=== PATIENT | male | born 1970 | race Caucasian/White ===

== ENCOUNTER → 2023-09-21 11:11 | Outpatient (REF) | payer BC, SELFPAY ==
[2023-09-21 12:00] LABS: Blood Urea Nitrogen 15 mg/dl (9-20); Calcium 9.5 mg/dl (8.4-10.2); Carbon Dioxide 26 mmol/L (22-30); Chloride 101 mmol/L (98-107); Glucose 85 mg/dl (70-99); HDL Cholesterol 33 mg/dl; LDL Cholesterol, Calculated 81 mg/dl; Potassium 4.9 mmol/L (3.5-5.1); Sodium 137 mmol/L (135-145); Total Cholesterol 131 mg/dl (50-199); Triglyceride 86 mg/dl (10-149); Very Low Density Lipoprotein 17 mg/dl (0-30); eGFR > 60.00
[2023-09-21 12:53] LABS: TSH 1.01 uIU/ml (0.47-4.68)
[2023-09-21 14:07] LABS: Glycohemoglobin (HgbA1c) 5.4 % (4.0-5.6)
== END ==
LOC: REG 11:11
PROVIDERS: ATTENDING PHYSICIAN Student in an Organized Health Care Education/Training Program
DX: Z00.00 Encounter for general adult medical examination without abnormal findings (principal)
CPT/HCPCS: 36415; 80048; 80061; 83036; 84443

== ENCOUNTER → 2024-03-24 11:12 | Outpatient (REF) | payer BC, SELFPAY ==
[2024-03-24 12:58] LABS: Hematocrit 42.6 % (39.0-52.0); Hemoglobin 14.9 g/dL (13.0-18.0); Mean Corpuscular Hgb 29.6 pg (27.0-31.0); Mean Corpuscular Volume 84.5 fL (80.0-94.0); Mean Platelet Volume 9.7 fL (7.4-10.4); Platelet Count 257 10^3/uL (130-400); Red Blood Cell Count 5.04 10^6/uL (4.70-6.10); Red Cell Dist. Width 12.6 % (11.5-14.5); White Blood Cell Count 5.2 10^3/uL (4.8-10.8)
[2024-03-24 13:30] LABS: Lipase 117 U/L (23-300)
== END ==
LOC: REG 11:12
PROVIDERS: ATTENDING PHYSICIAN Student in an Organized Health Care Education/Training Program
DX: Z00.00 Encounter for general adult medical examination without abnormal findings (principal); E66.9 Obesity, unspecified; Z68.35 Body mass index [BMI] 35.0-35.9, adult; I10 Essential (primary) hypertension; Z12.11 Encounter for screening for malignant neoplasm of colon; Z12.12 Encounter for screening for malignant neoplasm of rectum; I48.0 Paroxysmal atrial fibrillation
CPT/HCPCS: 36415; 83690; 85027

== ENCOUNTER → 2024-07-25 11:36 | Outpatient (REF) | payer BC, SELFPAY ==
[2024-07-25 12:38] LABS: % Basophils 0.9 % (0-2); % Eosinophils 3.1 % (0-6); % Immature Granulocytes 0.2 % (0-0.5); % Lymphocytes 30.8 % (20.5-51.1); % Monocytes 11.4 % (1.7-9.3); % Neutrophils 53.6 % (42.2-75.2); Absolute Eosinophils 0.1 10^3/uL (0-0.7); Absolute Lymphocytes 1.4 10^3/uL (1.2-3.4); Absolute Monocytes 0.5 10^3/uL (0.1-0.6); Absolute Neutrophils 2.5 10^3/uL (1.4-6.5); Hematocrit 45.2 % (39.0-52.0); Hemoglobin 15.4 g/dL (13.0-18.0); Mean Corp Hgb Conc. 34.1 g/dL (33.0-37.0); Mean Corpuscular Hgb 29.4 pg (27.0-31.0); Mean Corpuscular Volume 86.4 fL (80.0-94.0); Mean Platelet Volume 9.3 fL (7.4-10.4); Nucleated Red Blood Cells % 0 % (-); Platelet Count 251 10^3/uL (130-400); Red Blood Cell Count 5.23 10^6/uL (4.70-6.10); Red Cell Dist. Width 12.4 % (11.5-14.5); White Blood Cell Count 4.6 10^3/uL (4.8-10.8)
[2024-07-25 13:53] LABS: ALT (SGPT) 72 U/L (0-50); AST (SGOT) 36 U/L (17-59); Albumin 4.2 g/dl (3.5-5.0); Alkaline Phosphatase 52 U/L (38-126); Blood Urea Nitrogen 21 mg/dl (9-20); Carbon Dioxide 27 mmol/L (22-30); Chloride 100 mmol/L (98-107); Glucose 79 mg/dl (70-99); Potassium 4.9 mmol/L (3.5-5.1); Sodium 135 mmol/L (135-145); Total Bilirubin 0.7 mg/dl (0.2-1.3); Total Protein 6.3 g/dl (6.3-8.2); eGFR > 60.00
[2024-07-25 14:14] LABS: PSA, Total - Screen 0.95 ng/ml (0.0-4.0)
== END ==
LOC: REG 11:36
PROVIDERS: ATTENDING PHYSICIAN Nurse Practitioner Family
DX: Z12.5 Encounter for screening for malignant neoplasm of prostate (principal); I48.0 Paroxysmal atrial fibrillation; E78.00 Pure hypercholesterolemia, unspecified; I10 Essential (primary) hypertension; E66.01 Morbid (severe) obesity due to excess calories; E66.9 Obesity, unspecified
CPT/HCPCS: 36415; 80053; 85025; G0103

== ENCOUNTER 2024-08-24 10:58 | Inpatient (IN) | payer BC, SELFPAY ==
--- NOTE | 2024-08-10 14:17 | VNURNOTE ---
[facility] liaison called patient to discuss SDS joint protocol, post op plans. No answer, left message.
--- NOTE | 2024-08-10 16:02 | VNURNOTE ---
[facility] Liaison spoke with patient and spouse regarding pre-op plans. He is scheduled for R Total Knee Arthroplasty on 08/[address] Love. Patient has had orthopedic surgery in the past (hip) and stayed overnight. Patient stated he is expecting to
stay overnight after R Total Knee 08/24. He plans on having outpt PT at [facility] Date TBD.
Patient has a rolling walker and lives with spouse. Spouse will be available to assist post-op. Patient aware to bring rolling walker with him when DC'ed.
Plan- Follow up after Pre-Op appt on 08/17. [facility] per [facility] joint protocol versus overnight stay and outpt PT.
[2024-08-17 10:39] LABS: Hemoglobin 14.8 g/dL (13.0-18.0); Mean Corp Hgb Conc. 33.6 g/dL (33.0-37.0); Mean Corpuscular Hgb 29.4 pg (27.0-31.0); Mean Corpuscular Volume 87.5 fL (80.0-94.0); Mean Platelet Volume 9.4 fL (7.4-10.4); Platelet Count 223 10^3/uL (130-400); Red Blood Cell Count 5.03 10^6/uL (4.70-6.10); Red Cell Dist. Width 12.8 % (11.5-14.5); White Blood Cell Count 4.6 10^3/uL (4.8-10.8)
[2024-08-17 12:16] LABS: ALT (SGPT) 92 U/L (0-50); AST (SGOT) 41 U/L (17-59); Albumin 4.1 g/dl (3.5-5.0); Alkaline Phosphatase 53 U/L (38-126); Blood Urea Nitrogen 20 mg/dl (9-20); Calcium 8.8 mg/dl (8.4-10.2); Carbon Dioxide 30 mmol/L (22-30); Chloride 100 mmol/L (98-107); Glucose 93 mg/dl (70-99); Potassium 4.4 mmol/L (3.5-5.1); Sodium 137 mmol/L (135-145); Total Bilirubin 0.6 mg/dl (0.2-1.3); Total Protein 6.3 g/dl (6.3-8.2); eGFR > 60.00
[2024-08-17 13:34] VITALS: BMI 36.1
--- NOTE | 2024-08-18 10:28 | VNURNOTE ---
Follow up phone call placed after pre-op appt 08/17. Spoke with patient's spouse. She stated patient is staying overnight after surgery. He has outpt PT scheduled [facility]. T.T. and phone call placed to Vickey Alfaro to confirm.
Plan- Outpt PT.
[2024-08-22 09:58] VITALS: BMI 36.1
[2024-08-24] VITALS (15 sets, daily range): BP systolic 99–148; BP diastolic 51–80; BMI 36.1
[2024-08-24] MEDS: CELEBREX 200 MG PO (12:04)
[2024-08-24] MEDS: TYLENOL 650 MG PO ×2 (12:04→22:05)
[2024-08-24] MEDS: NORMOSOL-R/PLASMALYTE-A 1000 IV ×2 (12:05→19:16)
--- NOTE | 2024-08-24 12:06 | W.DS.TRANS ---
DC Summary - Physical Education Aide
-
Discharge Instructions:
Discharge Diagnosis/Procedures R TKA 08/24/24
Diet As tolerated
Activity With Walker
Driving Restrictions No driving
Bathing Restrictions OK to Shower
Other Services PT
Instructions:
Stand-Alone Forms: SDS Total Hip and Knee D/C
Changes to Home Medications: Yes
Discharge Medications:
DC Medications w/original date entered in [employer]
metoprolol succinate 50 mg tablet,extended release 24 hr 50 mg PO DAILY Blood pressure 05/09/21
simvastatin 20 mg tablet 20 mg PO DAILY High cholesterol 05/09/21
B-complex with vitamin C 1 cap PO DAILY Supplement 08/15/21
clobetasol 0.05 % topical cream 1 applic topical DAILY PRN skin irritation 08/14/24
flaxseed oil 1,000 mg capsule 1,000 mg PO DAILY 08/14/24
glucosamine sulfate dipotassium Cl 500 mg-chondroitin 400 mg capsule (Glucosamine Sulfate 2 KCL-Chondroitin) 2 cap PO DAILY Supplement 08/14/24
lisinopril 40 mg tablet 40 mg PO DAILY 08/14/24
spironolactone 25 mg tablet 25 mg PO DAILY Fluid retention/Swelling 08/14/24
tirzepatide (weight loss) 15 mg/0.5 mL subcutaneous pen injector (Zepbound) 15 mg SC TH 08/14/24
dexamethasone 4 mg tablet 4 mg PO BID inflammation #6 tabs 08/17/24
famotidine 20 mg tablet 20 mg PO HS GI prophylaxis #30 tabs 08/17/24
gabapentin 300 mg capsule 300 mg PO HS sleep/pain #10 caps 08/17/24
mupirocin 2 % topical ointment 1 applic topical BID infection prevention #1 tube 08/17/24
oxycodone 5 mg tablet 5 mg PO Q6H PRN 1 tab moderate pain, 2 tabs severe pain #30 tabs 08/17/24
acetaminophen 325 mg tablet (Tylenol) 650 mg (2 x 325 mg) PO QID #1 tab 08/24/24
apixaban 5 mg tablet (Eliquis) 2.5 mg (1/2 x 5 mg) PO BID Blood clot prevention/tx/afib #0 tabs 08/24/24
docusate sodium 100 mg capsule (Colace) 100 mg PO BID stool softner #1 cap 08/24/24
magnesium hydroxide 400 mg/5 mL oral suspension (Milk of Magnesia) 30 ml PO HS PRN Constipation #1 mL 08/24/24
sennosides 8.6 mg tablet (Senokot) 17.2 mg (2 x 8.6 mg) PO BID laxative #2 tabs 08/24/24
Home Medication Changes
dexamethasone 4 mg tablet 4 mg PO BID inflammation #6 tabs 08/17/24
famotidine 20 mg tablet 20 mg PO HS GI prophylaxis #30 tabs 08/17/24
gabapentin 300 mg capsule 300 mg PO HS sleep/pain #10 caps 08/17/24
mupirocin 2 % topical ointment 1 applic topical BID infection prevention #1 tube 08/17/24
oxycodone 5 mg tablet 5 mg PO Q6H PRN 1 tab moderate pain, 2 tabs severe pain #30 tabs 08/17/24
acetaminophen 325 mg tablet (Tylenol) 650 mg (2 x 325 mg) PO QID #1 tab 08/24/24
apixaban 5 mg tablet (Eliquis) 2.5 mg (1/2 x 5 mg) PO BID Blood clot prevention/tx/afib #0 tabs 08/24/24
docusate sodium 100 mg capsule (Colace) 100 mg PO BID stool softner #1 cap 08/24/24
magnesium hydroxide 400 mg/5 mL oral suspension (Milk of Magnesia) 30 ml PO HS PRN Constipation #1 mL 08/24/24
sennosides 8.6 mg tablet (Senokot) 17.2 mg (2 x 8.6 mg) PO BID laxative #2 tabs 08/24/24
Pending Results: No
--- NOTE | 2024-08-24 15:58 | OR.RPT ---
Addendum entered and electronically signed by Corey Love MD 08/24/24 18:08:
22 modifier was added for BMI >35kg/m2 which required 20 additional minutes for positioning, exposure, and implanting the components.
Original Note:
Operative Report
Operative Report
Orthopaedic Surgery Operative Note
DATE OF OPERATION: 08/24/2024
PREOPERATIVE DIAGNOSES: Osteoarthritis, right knee.
POSTOPERATIVE DIAGNOSES: Osteoarthritis, right knee.
OPERATION PERFORMED:
1) Right total knee arthroplasty (CPT 97651)
2) Intraosseous administration of analgesic (CPT 41949)
SURGEON: Corey Love MD
ASSISTANTS: Lex Moser PA-C who helped with patient and limb positioning and retraction
ANESTHESIA: Spinal by anesthesia plus intraoperative infusion of morphine into the tibial metaphysis by Dr. Love
COMPLICATIONS: None.
ESTIMATED BLOOD LOSS: 20mL
DRAINS: None
TOURNIQUET TIME: 57 minutes.
IMPLANTS:
- Karl Persona CR Femur, size 12
- Karl Persona tibia base plate, size H
- Karl Persona ultracongruent articular surface, 10 mm
- DJO Lindsay bone cement
INDICATIONS: The patient presented to my office with debilitating right knee pain due to osteoarthritis. We reviewed the natural history of this problem, as well as the risks, benefits, and alternatives of various treatment options. The patient
exhausted all nonoperative treatment options and wished to proceed with knee replacement surgery. The patient understood the risks which included, but were not limited to, bleeding, infection, failure to relieve pain, more pain than preop, damage to
blood vessels and nerves, need for reoperation, mechanical failure of the implants, wound healing problems, stiffness, instability, blood clot, pulmonary embolism, myocardial infarction, pneumonia, arrhythmia, CVA, and . The patient accepted
these risks and wished to proceed. All questions were answered, and informed consent was obtained.
PROCEDURE IN DETAIL: The patient was identified in the preoperative holding area. The right knee was identified as the operative site. The patient was taken in the operating room and placed in a supine position on the operating table. Spinal
anesthesia was performed. IV antibiotics and tranexamic acid were administered. An SCD was placed on the left lower extremity. A well-padded tourniquet was placed on the proximal thigh. All bony prominences were well padded. The right lower
extremity was prepped and draped in the usual sterile fashion.
We performed a surgical time-out. An interarticular block was performed with local anesthetic with epinephrine. The limb was exsanguinated with an Esmarch bandage, then the tourniquet was inflated to 250 mmHg. I performed interosseous administration
of morphine-saline solution via a Jamshidi style intraosseous needle into the proximal medial tibial metaphysis as described by Nuno Garcia MD. This was performed to aid in pain control. A midline skin incision was made followed by a medial
parapatellar arthrotomy. A subperiosteal peel was performed on the medial tibia. I excised part of the infrapatellar fat pad to improve our visualization as well as tissue over anterior femur. The patella was everted and the knee was flexed. I
excised the remnants of the anterior and posterior cruciate ligaments as well as tibial and femoral osteophytes with rongeurs.
The knee was flexed, and the extramedullary tibial cutting guide was aligned. [place] was aligned at neutral, rotation was centered on the tibial tubercle, and coronal alignment was aligned with the mechanical axis of the tibia and center of the ankle
joint. The cut height was 10mm off the lateral tibia joint surface. The guide was secured into place. The MCL and LCL were protected. The tibia surface was cut. The cut surface was inspected after removal to ensure appropriate height and slope based
on the preoperative plan. The cut was checked with a drop oracio. It was centered nicely at the ankle.
A drill was used to open the femoral canal. The intramedullary distal femoral cutting guide was inserted into the femur. This was set at 5 degrees +1 due to flexion contracture. This was secured into place with three pins. The cut level was checked
with an dayton wing. The distal femur was cut through the cutting guide. The IM guide was reinserted to double check that the level of resection was flush and in appropriate alignment.
Hudspeth�s line and the transepicondylar axis were marked on the femur. The femoral sizing guide was applied to the anterior femur. Pins were inserted, and the 4-in-1 cutting guide was applied and secured into place. The rotation was compared to
Hudspeth�s line, the transepicondylar axis, and the neutral tibia cut and was found to be appropriate. The width was checked and found to be appropriate and lateralized on the femur. The anterior, posterior, and chamfur cuts were made. A lamina
histologic aide was used to open the flexion gap, and posterior osteophytes were removed with a curved osteotome. The remnant medial and lateral meniscus were also removed. I prophylactically cauterized the lateral geniculate arteries. A 10mm spacer block
was applied to the flexion gap and was noted to be balanced medially and laterally. The knee was extended, and the block showed symmetric to extension and flexion gaps.
The tibia was exposed and sized. Rotation was set in line with the tibial tubercle and congruent with the femur. The trial was secured into place with two pins. The trial femur was impacted into place, and a trial articular surface was placed. The
knee was taken through range of motion and noted to be stable throughout the arc of motion without gaping or excess tension. The patella tracked centrally throughout the arc of motion without need for further releases. No full thickness cartilage
defects.
The trials were removed. The tibia keel was prepared with the punch and the drill. The bone surfaces were irrigated with sterile saline and dried. The cement was mixed in a vacuum mixer. Cement gun was used to apply cement to the tibial surface and
the undersurface of the tibial implant. Cement was pressurized into the tibial canal and tibia surface. The tibial component was impacted into place. Excess cement was removed. Cement was applied to the femoral surface and the femoral component. The
femoral component was impacted into place, and excess cement removed. A trial articular surface was inserted, and the knee was extended while the cement polymerized. The tourniquet was let down, and meticulous hemostasis was achieved. Dilute
betadine was poured into the wound and allowed to soak for 3 minutes. The knee was irrigated with copious normal saline.
Once the cement was polymerized, the trial articular surface was removed. Any excess cement was removed. The knee was trialed, and the final articular surface was selected and inserted into the tibial locking mechanism. The knee was reduced. A fresh
drape was applied to the surgical field.
The arthrotomy was closed with 0-PDS. Once closed, an interarticular block was performed with local anesthetic with epi. The deep dermal layer was closed with 2-0 PDS, and the subcuticular skin was closed with 3-0 monocryl. A Dermabond Prineo
dressing was applied to the skin in full flexion. Once this was completely dry, a sterile waterproof dressing was applied.
The anesthesia team performed an adductor canal block in the OR. The patient awoke from anesthesia without any difficulties. The sponge and instrument counts were correct x2 at the end of the case.
Thom Love MD
[2024-08-24] MEDS: ROXICODONE 5 MG PO (17:05)
--- NOTE | 2024-08-24 18:30 | PTCARENOTE ---
Received patient from PACU via stretcher around 1814 in stable condition. Right knee dressing CDI. + sensation + movement to both LE. Patient oriented to room. Call kelly in reach.
[2024-08-24] MEDS: DILAUDID 0.5 MG IV (19:10)
[2024-08-24] MEDS: ZOFRAN 4 MG IV (19:16)
[2024-08-24] MEDS: ANCEF 5 IV (22:04)
[2024-08-24] MEDS: NEURONTIN 300 MG PO (22:05)
[2024-08-24] MEDS: BACTROBAN 2% OINTMENT 1 APPLIC NASAL (22:05)
[2024-08-24] MEDS: ULTRAM 50 MG PO (22:05)
[2024-08-24] MEDS: COLACE 100 MG PO (22:06)
[2024-08-24] MEDS: ELIQUIS 2.5 MG PO (22:06)
[2024-08-24] MEDS: DECADRON 4 MG PO (22:06)
[2024-08-24] MEDS: ROXICODONE 10 MG PO (22:18)
[2024-08-24] MEDS: SENOKOT PO (22:19)
[2024-08-25] MEDS: TYLENOL PO (01:42)
[2024-08-25] MEDS: ROXICODONE 10 MG PO ×2 (02:47→07:36)
[2024-08-25] MEDS: TYLENOL 650 MG PO ×2 (02:47→07:36)
[2024-08-25 03:09] VITALS: BP 143/79
[2024-08-25] MEDS: ANCEF 5 IV (04:48)
[2024-08-25 05:33] VITALS: BMI 36.3
[2024-08-25 07:25] VITALS: BP 140/74
[2024-08-25] MEDS: SENOKOT 17.2 MG PO (07:35)
[2024-08-25] MEDS: ZESTRIL 40 MG PO (07:35)
[2024-08-25] MEDS: ULTRAM 50 MG PO (07:36)
[2024-08-25] MEDS: TOPROL XL 50 MG PO (07:37)
[2024-08-25] MEDS: LIPITOR 10 MG PO (07:37)
[2024-08-25] MEDS: ELIQUIS 2.5 MG PO (07:37)
[2024-08-25] MEDS: COLACE 100 MG PO (07:37)
[2024-08-25] MEDS: DECADRON 4 MG PO (07:37)
[2024-08-25] MEDS: BACTROBAN 2% OINTMENT 1 APPLIC NASAL (07:38)
--- NOTE | 2024-08-25 10:21 | W.PN.ORTHO ---
Today's Communication / Plan
-
d/c
Assessment
.
Distal Motor Intact: Yes
Dressing:
Clean, dry and intact.
Plan
.
Surgery / Date: R TKA 08/24/24 Dr. Love
DVT Prophylaxis: Other (Eliquis 2.5mg bid)
Activity:
Out of bed.
PT/OT
Discharge Plan: Home w/ Outpatient PT
Subjective
.
.:
Patient resting comfortably.
Vital Signs and Labs
.
Vital Signs and Labs:
Lab Results
08/17/24 09:55
08/17/24 09:55
Temp Pulse Resp BP Pulse Ox
97.6 F 66 18 140/74 98
08/25/24 07:25 08/25/24 07:25 08/25/24 07:25 08/25/24 07:25 08/25/24 07:25
Physical Exam
-
HEENT: No pallor, cyanosis, or jaundice. Throat clear.
NECK: Supple. No JVD.
RESPIRATORY: Lungs clear to auscultation.
CVS: S1, S2 normal. RRR.� No murmur, rub or gallop.
ABDOMEN: Soft, non-tender. No distension. BS+/normal.
EXTREMITIES: strength equal, no calf pain with palpation
GROUP LEADER: AOx3. No focal deficits. 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
--- NOTE | 2024-08-25 11:31 | CM ---
Met with pt at bedside
Pt reports he lives with his in a 2 story home; 2 steps to enter, FF set-up
Independent, self-employed, drives
DME - CPAP, rolling walker, single point cane, quad cane, toilet rails, shower rails, raised toilet seat
SNF/HH - denies past Hx
Has ride at discharge
PCP - Kassandra Brown
Pharm - [facility] [place]
Has appointment for outpatient PT on Monday 08/28 at ambulatory center. Has Rx. Has transportation
Plan - home with outpatient PT
[2024-08-25 11:44] VITALS: BP 121/62
[2024-08-25 12:00] VITALS: PULSE 60; O2SAT 98
[2024-08-25] MEDS: ROXICODONE 5 MG PO (12:28)
== END 2024-08-25 12:32 | disposition home or self-care (01) | DRG 470 ==
LOC: 2 SOUTH 10:58
PROVIDERS: ADMITTING PHYSICIAN Orthopaedic Surgery; FAMILY PHYSICIAN Family Medicine; REFERRING PHYSICIAN Internal Medicine
PROC: 0SRC0J9 Replacement of Right Knee Joint with Synthetic Substitute, Cemented, Open Approach (ICD-10-PCS; 2024-08-24)
DX: M17.11 Unilateral primary osteoarthritis, right knee (principal); I43 Cardiomyopathy in diseases classified elsewhere; I48.0 Paroxysmal atrial fibrillation; I10 Essential (primary) hypertension; E78.2 Mixed hyperlipidemia; G47.33 Obstructive sleep apnea (adult) (pediatric); E66.01 Morbid (severe) obesity due to excess calories; Z68.36 Body mass index [BMI] 36.0-36.9, adult; Z79.01 Long term (current) use of anticoagulants; Z79.899 Other long term (current) drug therapy; Z96.642 Presence of left artificial hip joint
CPT/HCPCS: 36415; 73560; 80053; 83036; 85027; 87070; 97110; 97116; 97162; 97166; 97535

== ENCOUNTER 2024-09-06 17:50 | Outpatient (RCR) | payer BC, SELFPAY | END 2024-09-06 23:59 | disposition home or self-care (01) | LOC: RPT 17:50 | PROVIDERS: ATTENDING PHYSICIAN Orthopaedic Surgery; FAMILY PHYSICIAN Family Medicine | DX: Z47.1 Aftercare following joint replacement surgery (principal); Z73.6 Limitation of activities due to disability; R26.89 Other abnormalities of gait and mobility; M25.561 Pain in right knee; Z96.651 Presence of right artificial knee joint | CPT/HCPCS: 97010; 97110; 97162; 97530 ==

== ENCOUNTER 2024-10-04 17:52 | Outpatient (RCR) | payer BC, SELFPAY | END 2024-10-04 23:59 | disposition home or self-care (01) | LOC: RPT 17:52 | PROVIDERS: ATTENDING PHYSICIAN Orthopaedic Surgery; FAMILY PHYSICIAN Family Medicine | DX: Z47.1 Aftercare following joint replacement surgery (principal); Z73.6 Limitation of activities due to disability; R26.89 Other abnormalities of gait and mobility; M25.561 Pain in right knee; M62.81 Muscle weakness (generalized); Z96.651 Presence of right artificial knee joint | CPT/HCPCS: 97010; 97110; 97140; 97530 ==

== ENCOUNTER 2024-10-25 18:40 | Outpatient (RCR) | payer BC, SELFPAY | END 2024-10-30 09:51 | disposition home or self-care (01) | LOC: RPT 18:40 | PROVIDERS: ATTENDING PHYSICIAN Orthopaedic Surgery; FAMILY PHYSICIAN Family Medicine | DX: Z47.1 Aftercare following joint replacement surgery (principal); Z73.6 Limitation of activities due to disability; R26.89 Other abnormalities of gait and mobility; M62.81 Muscle weakness (generalized); Z96.651 Presence of right artificial knee joint; M25.561 Pain in right knee | CPT/HCPCS: 97110; 97140 ==